=== PATIENT | female | born 1980 | race Caucasian/White ===

== ENCOUNTER 2016-06-08 13:59 | Emergency (ER) | payer OTHER ==
[~2016-06-08] VITALS: Ht 160 cm; Wt 75.5 kg
[~2016-06-08 13:59] MED LIST: ASCO100089 PO; ASCO1TAB39 PO; FERR325C PO; VITA150T PO
[2016-06-08 14:00] VITALS: BP 122/84; PULSE 87; RESP 16; O2SAT 98
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
[2016-06-08] MEDS ORDERED: ROB500 PO (16:16)
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
[2016-06-08 18:30] VITALS: BP 122/84; PULSE 87; RESP 16; O2SAT 98
== END 2016-06-08 18:31 | disposition home or self-care (01) ==
LOC: SED 13:59
DX: S16.1XXA Strain of muscle, fascia and tendon at neck level, initial encounter (principal); S29.019A Strain of muscle and tendon of unspecified wall of thorax, initial encounter; V43.53XA Car driver injured in collision with pick-up truck in traffic accident, initial encounter; Y93.89 Activity, other specified; Y99.8 Other external cause status; Y92.410 Unspecified street and highway as the place of occurrence of the external cause; Z88.8 Allergy status to other drugs, medicaments and biological substances